=== PATIENT | female | born 1935 | race Caucasian/White ===

== ENCOUNTER 2017-01-14 15:24 | Emergency (ER) | payer MEDICARE ==
--- NOTE | 2017-01-14 15:51 | Emergency Department Record ---
History of Present Illness - General Chief Complaint: General Stated Complaint: NEEDS FEEDING TUBE LOOKED AT Time Seen by Provider: 01/14/17 15:50 Source: Patient Mode of Arrival: Ambulatory Limitations: No limitations - History of Present Illness Initial comments: The patient is here due to a complication from her nasal feeding tube. It was put in at [facility] some time ago for feedings to administer nutrition so the patient can gain weight. Now the anchoring tie has come loose and is hanging down the back of the throat. She denies having the tube dislodged or any other problems. Onset/Timin -: Days(s) - Related Data Home Medications Medication Instructions Recorded Confirmed Last Taken Atorvastatin Calcium [Lipitor] 40 mg PO DAILY 01/14/17 01/14/17 Unknown Cholecalciferol (Vitamin D3) 5,000 unit PO DAILY 01/14/17 01/14/17 Unknown [Vitamin D3] Glipizide/Metformin HCl 1 each PO ASDIR 01/14/17 01/14/17 Unknown [Glipizide-Metformin 2.5-250 mg] Hydrocodone/Acetaminophen 1 tab PO ASDIR 01/14/17 01/14/17 Unknown [Hydrocodone/Acetaminophen 10mg/325mg] Levothyroxine Sodium [Synthroid] 75 mcg PO DAILY 01/14/17 01/14/17 Unknown Lipase/Protease/Amylase [Creon Dr 1 tab PO ASDIR 01/14/17 01/14/17 Unknown 24,000 Units Capsule] Metformin HCl [Metformin HCl ER] 500 mg PO QID 01/14/17 01/14/17 Unknown Omeprazole [Omeprazole] 40 mg PO DAILY 01/14/17 01/14/17 Unknown Ondansetron HCl [Zofran] 4 mg PO ASDIR 01/14/17 01/14/17 Unknown Tramadol HCl [Tramadol HCl] 50 mg PO BID 01/14/17 01/14/17 Unknown Valacyclovir HCl [Valacyclovir] 500 mg PO ASDIR 01/14/17 01/14/17 Unknown Allergies Allergy/AdvReac Type Severity Reaction Status Date / Time sulfamethoxazole Allergy SWELLING Verified 01/14/17 15:35 [From Bactrim] OF THE TONGUE trimethoprim [From Bactrim] Allergy SWELLING Verified 01/14/17 15:35 OF THE TONGUE Review of Systems Constitutional: Denies: Chills, Fever, Malaise Physical Exam - General General Appearance: Alert, Oriented x3, Cooperative, No acute distress - Head Head exam: Atraumatic, Normocephalic, Normal inspection - Eye Eye exam: Normal appearance, PERRL - ENT Nasal Exam: Other (There is a feeding tube in the L nares and the anchoring tie is attached and is traveling down the L nares to the back of the throat. It has come loost from its tie back thru the R nares.). negative: Normal inspection Course - Reevaluation(s) Reevaluation #1: The loose end of the anchoring tie was gently removed and cut at the feeding tube. The tube was then anchored with tape to the nose. There were no complications. 01/14/17 15:55 01/14/17 15:55 Disposition Disposition: Discharge Clinical Impression: Complication of feeding tube Disposition: Home, Self-Care Condition: (1) Good Instructions: How to Use and Care for Your PEG Tube (ED) Additional Instructions: Please continue your previous instructions. Return to the ER for any new problems. Forms: Patient Portal Access Time of Disposition: 15:51 Quality - Quality Measures Quality Measures: N/A - Blood Pressure Screening View Details: Yes Does Patient Have Any of the Following: No Systolic Measurement: ~ Screening for High Blood Pressure: < Pre-Hypertensive BP, F/U Documented > [ [id number]] Pre-Hypertensive Follow-up Interventions: Referral to alternative/primary care provider.
== END 2017-01-14 16:05 | disposition home or self-care (01) ==
LOC: ER 15:24
DX: K94.23 Gastrostomy malfunction (principal)
CPT/HCPCS: 99283